=== PATIENT | female | born 1995 | race Caucasian/White ===

== ENCOUNTER 2017-05-23 23:07 | Emergency (ER) | payer SELFPAY ==
[~2017-05-23] VITALS: Ht 154.9 cm; Wt 55.6 kg
[~2017-05-23 23:07] MED LIST: AMPH20TA2 PO; CEFD300C3 PO; CHOL10003 PO; DEXT10TA9 PO; FLUO20CA42 PO; LRT10T PO; NAPR-243 PO; ORTHOTRYCYCLINE
--- OUTSIDE RECORDS SUMMARY | 2017-05-23 23:12 | XMS REPORT | Continuity of Care Document ---
Demographics Preferred Language Unknown Marital Status Unknown Gnosticist Affiliation Unknown Race Unknown Ethnic Group Unknown Author Author [facility] Address Unknown Phone Unavailable Allergies Medications Problems Date Dx Coded Attending Type Code Diagnosis Diagnosed By 12/06/2009 314.00 CD ADHD INATTENTIVE 12/20/2009 309.0 AD ADJ D/O W DEPRESSED 01/26/2010 311 MO DEPRESS NOS Procedures Results Encounters ACCT No. Visit Date/Time Discharge Status Pt. Type Provider Facility Loc./Unit Complaint [id number] 03/17/2010 16:13:00 03/17/2010 23: 59:59 CLS Outpatient [id number] 01/14/2013 08:46:49 RECURRING
[2017-05-23] MEDS ORDERED: LACTATED RINGERS 1,000 ML IV ONE (23:23)
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
[2017-05-23 23:29] LABS: BASOPHILS % (AUTO) 0 % (0-10); EOSINOPHILS # (AUTO) 0.2 10^3/uL (0.0-0.3); EOSINOPHILS % (AUTO) 2 % (0-10); LYMPHOCYTES # (AUTO) 3.7 X 10^3 (1.0-4.0); LYMPHOCYTES % (AUTO) 43 % (12-44); MEAN CORPUSCULAR HEMOGLOBIN 30 PG (25-34); MEAN CORPUSCULAR HGB CONC 34 G/DL (32-36); MEAN CORPUSCULAR VOLUME 90 FL (80-99); MEAN PLATELET VOLUME 9.4 FL (7.4-10.4); MONOCYTES # (AUTO) 0.7 X 10^3 (0.0-1.0); MONOCYTES % (AUTO) 8 % (0-12); NEUTROPHILS % (AUTO) 47 % (42-75); PLATELET COUNT 359 10^3/uL (130-400); RED BLOOD COUNT 3.88 10^6/uL (4.35-5.85); RED CELL DISTRIBUTION WIDTH 12.3 % (10.0-14.5); WHITE BLOOD COUNT 8.6 10^3/uL (4.3-11.0)
[2017-05-23 23:51] LABS: ALANINE AMINOTRANSFERASE 13 U/L (0-55); ALBUMIN 3.9 GM/DL (3.2-4.5); ALCOHOL 255 MG/DL (<10); ANION GAP 14 MMOL/L (5-14); ASPARTATE AMINO TRANSFERASE 16 U/L (5-34); BILIRUBIN,TOTAL 0.3 MG/DL (0.1-1.0); BLOOD UREA NITROGEN 7 MG/DL (7-18); BUN/CREATININE RATIO 11; CARBON DIOXIDE 16 MMOL/L (21-32); CHLORIDE 109 MMOL/L (98-107); CREATININE SERUM 0.62 MG/DL (0.60-1.30); GFR ESTIMATED > 60; GLUCOSE 128 MG/DL (70-105); POTASSIUM 2.9 MMOL/L (3.6-5.0); SODIUM 139 MMOL/L (135-145); TOTAL PROTEIN 6.5 GM/DL (6.4-8.2)
[2017-05-24 00:22] LABS: BILIRUBIN,URINE NEGATIVE (NEGATIVE); KETONES,URINE NEGATIVE (NEGATIVE); LEUKOCYTE ESTERASE ,URINE NEGATIVE (NEGATIVE); NITRITE,URINE NEGATIVE (NEGATIVE); PH,URINE 6 (5-9); PROTEIN,URINE NEGATIVE (NEGATIVE); UROBILINOGEN,URINE NORMAL (NORMAL)
[2017-05-24 00:31] LABS: SQUAMOUS EPITHELIAL CELL,UR 0-2 /HPF
[2017-05-24 01:55] VITALS: BP 109/73
== END 2017-05-24 01:55 | disposition home or self-care (01) ==
LOC: EDUNIT# 23:07 → ER 23:09
DX: F10.129 Alcohol abuse with intoxication, unspecified (principal); F90.9 Attention-deficit hyperactivity disorder, unspecified type; R89.1 Abnormal level of hormones in specimens from other organs, systems and tissues
CPT/HCPCS: 36415; 80053; 80306; 80320; 81000; 84703; 85025; 96360

== ENCOUNTER → 2018-11-18 | Outpatient (CLI) | payer OTHER, MEDICAID ==
--- NOTE | 2018-11-18 13:31 | Diagnostic Imaging Report ---
INDICATION: survey. TECHNIQUE: Multiple Real-time grayscale images were obtained over the gravid uterus. COMPARISON: None. FINDINGS: There is a single live fetus in a breech presentation. The heart rate was recorded at 147 BPM. The placenta is posterior. The amniotic fluid volume is normal. The survey demonstrates the kidneys, bladder, and stomach to be unremarkable. The brain is unremarkable. There is a four-chamber heart. There is a three-vessel cord with normal insertion. The spine is unremarkable. The maternal adnexa was not evaluated. Biometrical measurements are as follows: Biparietal 5.04 cm, age 21 weeks 2 days. Head circumference 18.85 cm, age 21 weeks 2 days. Abdominal circumference 17.59 cm, age 22 weeks 4 days. Femur length 3.66 cm, age 21 weeks 5 days. Sonographic estimate age: 21 weeks 5 days. Sonographic estimated date of delivery: 03/26/2019. Estimated Weight: 466 gm (+/- 68 gm). LMP percentile: 86%. heart rate: 147 beats per minute. number: 1 of 1. IMPRESSION: Single live IUP of approximately 21 weeks 5 days gestational age. The estimated date of confinement sonographically is 03/26/2019. Dictated by: Dictated on workstation # [id number]
== END ==
LOC: RAD 12:00
PROVIDERS: ATTEND Obstetrics & Gynecology
DX: Z36.89 Encounter for other specified antenatal screening (principal); Z3A.21 21 weeks gestation of pregnancy
CPT/HCPCS: 76805

== ENCOUNTER 2019-03-30 13:03 | Outpatient (CLI) | payer OTHER, MEDICAID ==
[~2019-03-30] VITALS: Ht 157.5 cm; Wt 93.6 kg
--- NOTE | 2019-03-30 13:08 | NUR ---
ROZ MONTE presented to unit from ED, with c/o CONTRACTIONS. ROZ MONTE weighed, gowned, voided, and to bed. EFHM and TOCO applied, VS taken. ROZ MONTE oriented to bed controls, call light, TV, heat, and A/C controls.
[2019-03-30 13:19] VITALS: BP 119/75
[2019-03-30] MEDS ORDERED: SERT25TA PO (13:23)
[2019-03-30] MEDS ORDERED: PNV11TAB5 PO (13:23)
[2019-03-30 13:31] LABS: BILIRUBIN,URINE NEGATIVE (NEGATIVE); CLARITY,URINE VERY CLOUDY; COLOR,URINE YELLOW; GLUCOSE, URINE (UA) NEGATIVE (NEGATIVE); KETONES,URINE NEGATIVE (NEGATIVE); LEUKOCYTE ESTERASE ,URINE 2+ (NEGATIVE); NITRITE,URINE NEGATIVE (NEGATIVE); PH,URINE 6 (5-9); PROTEIN,URINE 1+ (NEGATIVE); UROBILINOGEN,URINE NORMAL (NORMAL)
[2019-03-30 13:39] LABS: BACTERIA,URINE LARGE /HPF; SQUAMOUS EPITHELIAL CELL,UR 25-50 /HPF
--- NOTE | 2019-03-30 14:19 | NUR ---
DR. FANG NOTIFIED OF PT'S ARRIVAL, C/O, GESTATION, REVIEW OF STRIP, UA RESULTS. ORDERS RECEIVED TO [facility].
--- NOTE | 2019-03-30 14:33 | NUR ---
DISCHARGE PAPERS PROVIDED AND REVIEWED WITH PT, PT VERBALIZES UNDERSTANDING AND DENIES ANY QUESTIONS AT THIS TIME. PAPER SIGNED.
--- NOTE | 2019-03-30 14:35 | NUR ---
PT DISCHARGED FROM [facility] TO [facility] AMBULATORY IN STABLE CONDITION.
[2019-04-01] MEDS ORDERED: IBUP-844 PO (21:16)
[2019-04-01] MEDS ORDERED: DOCU100C37 PO (21:16)
[2019-04-01] MEDS ORDERED: ACHD5005 PO (21:16)
[2019-04-01] MEDS ORDERED: FERR325T18 PO (21:16)
== END 2019-03-30 14:35 | disposition home or self-care (01) ==
LOC: LDRP 13:03 → WSo 13:03
PROVIDERS: ATTEND Obstetrics & Gynecology
DX: O62.9 Abnormality of forces of labor, unspecified (principal); Z3A.40 40 weeks gestation of pregnancy
CPT/HCPCS: 81000; 87088; 99213

== ENCOUNTER 2019-03-31 17:00 | Inpatient (IN) | payer OTHER, MEDICAID ==
[~2019-03-31] VITALS: Ht 157.5 cm; Wt 93.6 kg
[~2019-03-31 17:00] MED LIST changes: +PNV11TAB5 PO; +SERT25TA PO
[2019-03-31] MEDS ORDERED: D5 LR IV SOLUTION 1,000 ML IV ONE (19:26)
[2019-03-31 19:30] VITALS: BP 119/75
[2019-03-31] MEDS ORDERED: NS IV 500 ML 500 ML ONE (19:59)
[2019-03-31] MEDS ORDERED: MISOPROSTOL 100 MCG (CYTOTEC) TAB PO NR (20:00)
[2019-03-31] MEDS ORDERED: NS 1000 ML IV BAG IV ONE (20:00)
[2019-03-31 20:06] LABS: BASOPHILS % (AUTO) 0 % (0-10); EOSINOPHILS # (AUTO) 0.1 10^3/uL (0.0-0.3); EOSINOPHILS % (AUTO) 1 % (0-10); HEMATOCRIT 37 % (35-52); HEMOGLOBIN 12.6 G/DL (11.5-16.0); LYMPHOCYTES # (AUTO) 1.6 X 10^3 (1.0-4.0); LYMPHOCYTES % (AUTO) 15 % (12-44); MEAN CORPUSCULAR HEMOGLOBIN 30 PG (25-34); MEAN CORPUSCULAR HGB CONC 34 G/DL (32-36); MEAN CORPUSCULAR VOLUME 88 FL (80-99); MEAN PLATELET VOLUME 10.4 FL (7.4-10.4); MONOCYTES # (AUTO) 0.7 X 10^3 (0.0-1.0); MONOCYTES % (AUTO) 6 % (0-12); NEUTROPHILS # (AUTO) 8.7 X 10^3 (1.8-7.8); NEUTROPHILS % (AUTO) 78 % (42-75); PLATELET COUNT 327 10^3/uL (130-400); RED CELL DISTRIBUTION WIDTH 14.1 % (10.0-14.5); WHITE BLOOD COUNT 11.1 10^3/uL (4.3-11.0)
[2019-03-31] MEDS: D5 LR IV SOLUTION 1,000 ML IV SCH (20:07)
[2019-03-31 20:30] VITALS: BP 102/66
[2019-03-31] MEDS: MISOPROSTOL 100 MCG (CYTOTEC) TAB PO SCH (20:42)
[2019-03-31 21:30] VITALS: BP 108/62
[2019-03-31 22:30] VITALS: BP 119/68
[2019-03-31 23:30] VITALS: BP 115/76
[2019-04-01] VITALS (29 sets, daily range): BP systolic 102–141; BP diastolic 55–95
[2019-04-01] MEDS: MISOPROSTOL 100 MCG (CYTOTEC) TAB PO SCH (01:27)
[2019-04-01] MEDS ORDERED: HYDROmorphone 2 MG/ML VIAL (DILAUDID) IV ONE ×2 (02:15→05:45)
[2019-04-01] MEDS: D5 LR IV SOLUTION 1,000 ML IV SCH ×2 (03:37→10:55)
[2019-04-01] MEDS ORDERED: SUFENTA 0.6MCG/ML BUPIVA 0.125 100 ML ONE (07:19)
--- NOTE | 2019-04-01 08:05 | History & Physical-OB ---
OB - Chief Complaint & HPI Date/Time Date of Admission: Date of Admission: March 31, 2019 at 17:00 Date seen by a Provider: April 01, 2019 Time Seen by a Provider: 08:00 Chief Complaint/History OB-Reason for Admission/Chief: Induction of Labor Hx : 1 Hx Para: 0 Expected Date of Delivery: March 30, 2019 Gestational Age in Weeks: 40 Gestational Age in Days: 1 Admission Nurse Assessment Rev: Yes History of Labs see labs Allergies and Home Medications Allergies Coded Allergies: No Known Drug Allergies (Unverified , 07/04/10) Home Medications Loratadine 10 Mg Tab, 10 MG PO DAILY, (Reported) Iee538/FA/Omega3/Dha/Fish Oil 1 Each Tab.chew, 2 EACH PO DAILY, (Reported) Sertraline HCl 25 Mg Tablet, 25 MG PO DAILY, (Reported) Patient Home Medication List Home Medication List Reviewed: Yes OB - History Hx of Present Care: Yes Ultrasounds: Normal mid trimester US Obstetrical Complications: None Medical Complications: None Delivery History Hx Blood Disorders: No Adverse Rxn to Tranfusion: No Patient Past Medical History n/a Social History/Family History Alcohol Use: Denies Use Recreational Drug Use: No Immunizations Tetanus Booster (TDap): Unknown OB - Admission Exam Physical Exam Vitals: Vital Signs 04/01/19 04/01/19 03:00 06:20 Temp 97.9 Pulse 80 Resp 18 B/P (MAP) 121/70 (87) HEENT: NCAT Heart: Rhythm Normal Lungs: Clear Abdomen: Gravid Extremities: Normal Reflexes: Normal Cervical Dilatation: 2cm Effacement: 75% Station: -1 Membranes: Intact Heart Rate: 130's Accelerations: Accelerations Present Decelerations: No Decelerations Short Term Variability: Present Snf Variability: Average (6-25) Contractions on Admission: None Intensity: Mild Labs Laboratory Tests Test 03/31/19 19:40 Range/Units White Blood Count 11.1 H 4.3-11.0 10^3/uL Red Blood Count 4.22 L 4.35-5.85 10^6/uL Hemoglobin 12.6 11.5-16.0 G/DL Hematocrit 37 35-52 % Mean Corpuscular Volume 88 80-99 FL Mean Corpuscular Hemoglobin 30 25-34 PG Mean Corpuscular Hemoglobin Concent 34 32-36 G/DL Red Cell Distribution Width 14.1 10.0-14.5 % Platelet Count 327 130-400 10^3/uL Mean Platelet Volume 10.4 7.4-10.4 FL Neutrophils (%) (Auto) 78 H 42-75 % Lymphocytes (%) (Auto) 15 12-44 % Monocytes (%) (Auto) 6 0-12 % Eosinophils (%) (Auto) 1 0-10 % Basophils (%) (Auto) 0 0-10 % Neutrophils # (Auto) 8.7 H 1.8-7.8 X 10^3 Lymphocytes # (Auto) 1.6 1.0-4.0 X 10^3 Monocytes # (Auto) 0.7 0.0-1.0 X 10^3 Eosinophils # (Auto) 0.1 0.0-0.3 10^3/uL Basophils # (Auto) 0.0 0.0-0.1 10^3/uL OB - Assessment/Plan/Diagnosis Assessment Assessment: induction of labor Admission Dx 24 yo @ 40 weeks Postdates Induction of labor GBS neg Admission Status: Inpatient Order (span 2 midnights) Reason for Inpatient Admission: Induction of labor at term Plan Plan: Induction Induction Method: per Misoprostol Protocol CABRERA FNAG DO April 01, 2019 08:05
[2019-04-01] MEDS ORDERED: LIDOCAINE/EPI 2% 1:200,00 (XYLOCAINE) 10 ML VIAL ONE (08:11)
[2019-04-01] MEDS ORDERED: fentaNYL INJECTION 100 MCG/2 ML AMP ONE (08:24)
[2019-04-01] MEDS ORDERED: OXYTOCIN/NORMAL SALINE 500 ML IV ONE (08:29)
[2019-04-01] MEDS ORDERED: LIDOCAINE 1% INJ 20 ML 20 ML VIAL ONE (08:29)
[2019-04-01] MEDS ORDERED: LACTATED RINGERS 1,000 ML IV SCH (10:45)
[2019-04-01] MEDS ORDERED: ONDANSETRON 4 MG/2 ML (SDV) Z0FRAN ONE (11:43)
[2019-04-01] MEDS ORDERED: ONDANSETRON 4 MG/2 ML (SDV) Z0FRAN IVP PRN (12:00)
[2019-04-01] MEDS ORDERED: OXYTOCIN/NORMAL SALINE 500 ML IV SCH (12:54)
[2019-04-01] MEDS ORDERED: BENZOCAINE/MENTHOL (DERMOPLAST) 56 ML CAN TP PRN (13:00)
[2019-04-01] MEDS ORDERED: HYDROcodone/APAP 5 MG/325 MG (LORTAB) TAB PO PRN (13:00)
[2019-04-01] MEDS ORDERED: MEASLES,MUMPS,RUBELLA 1 EA INJ SQ ONE (13:00)
[2019-04-01] MEDS ORDERED: TETANUS,DIPTH,PERTUSS P/F (BOOSTRIX) 0.5 ML VIAL IM ONE (13:00)
[2019-04-01] MEDS ORDERED: WITCH HAZEL(TUCKS) 40 EA JAR TOP PRN (13:00)
--- NOTE | 2019-04-01 13:02 | OB Labor & Delivery Record ---
L&D History Date of Service Date of Service: April 01, 2019 History Expected Date of Delivery: March 30, 2019 Gestational Age in Weeks: 40 Hx : 1 Hx Para: 0 Complications Events: Routine care Operative Indications (Cesarea: N/A-Vaginal Delivery Intrapartal Events: None L&D Stage1 Stage One Onset of Labor - Date: April 01, 2019 Monitors and Tracing Monitor Mode: External Heart Rate: 150 Station: -1 Vital Signs VS - Last 72 Hours, by Label 03/31/19 03/31/19 03/31/19 03/31/19 19:30 20:30 21:30 22:30 Temp 99.2 Pulse 111 96 98 86 Resp 18 18 18 18 B/P (MAP) 119/75 (90) 102/66 (78) 108/62 (77) 119/68 (85) 03/31/19 04/01/19 04/01/19 04/01/19 23:30 00:30 01:30 03:00 Temp 99.3 97.9 Pulse 90 80 86 112 Resp 18 18 18 18 B/P (MAP) 115/76 (89) 103/58 (73) 124/69 (87) 102/55 (71) 04/01/19 04/01/19 04/01/19 04/01/19 04:20 05:20 06:20 07:20 Pulse 93 83 80 77 Resp 18 18 18 16 B/P (MAP) 114/61 (78) 114/56 (75) 121/70 (87) 116/63 (80) Pulse Ox 96 O2 Delivery Room Air 04/01/19 04/01/19 04/01/19 04/01/19 07:30 08:13 08:15 08:18 Pulse 92 113 108 96 Resp 16 16 16 16 B/P (MAP) 141/81 (101) 141/80 (100) 141/67 (91) Pulse Ox 99 97 100 O2 Delivery Room Air Room Air Room Air 04/01/19 04/01/19 04/01/19 04/01/19 08:20 08:21 08:22 08:25 Pulse 94 96 94 Resp 16 16 B/P (MAP) 131/58 (82) 138/95 (109) 136/63 (87) 113/58 (76) Pulse Ox 100 100 04/01/19 04/01/19 04/01/19 04/01/19 08:30 08:45 09:00 09:15 Temp 99.3 Pulse 100 102 89 101 Resp 16 16 16 16 B/P (MAP) 116/71 (86) 127/83 (98) 111/69 (83) 114/75 (88) Pulse Ox 100 100 100 97 O2 Delivery Simple Mask Simple Mask Simple Mask Simple Mask O2 Flow Rate 10.00 10.00 10.00 10.00 04/01/19 04/01/19 09:30 09:45 Pulse 88 118 Resp 16 16 B/P (MAP) 119/69 (86) 116/63 (80) Pulse Ox 100 97 O2 Delivery Simple Mask Simple Mask O2 Flow Rate 10.00 10.00 Rupture of Membranes Amniotic Membrane Rupture Time: 0757 Induction/Anesthesia Epidural Cath Placement - Time: 08 Progress/Notes misoprostol PO given as induction method which required no further intervention, patient progressed to complete and +2 station after receiving epidural L&D Stage2 Monitors and Tracing Monitor Mode: External Heart Rate: 150 Monitor Accelerations: None Monitor Decelerations: Variable Plastic Straightening Roll Operator Variability: Average (6-10) Short Term Variability: Present Position: Right Occiput Anterior Presentation: Vertex Signs of Distress by FHT Signs of Distress Due to prolonged decels into the 60s decision was made for low vaccuum extraction. kiwi cup placed down midsagital suture line between ant/post fontanelle. 550 mmhg applied by the handle and with gentle extension the head was delivered of midline episiotomy Cord Descript/Complications Cord Vessel Description: 3 Vessels Complications nuchal cord reduced x 1 Delivery Type Delivery Method: Low Vacuum Extraction Anterior Shoulder: Left Episiotomy/Perineal Laceration Laceraction(s)/Extensions: Yes Episiotomy Description: Midline Degree (describe repair) midline episiotomy repaired using 3-0 and 2-0 vicryl suture Condition of Delivery 1 minute Comment: 8 5 minute Comment: 9 Notes live male weight pending Condition of Infant Condition of : Living Exam: No Observed Abnormalities Resuscitation Resuscitation: N/A - Spontaneous Resp L&D Stage3 Stage Three Stage III Date: April 01, 2019 Pictocin Pitocin Administration Comment: 30 mu wide open at delivery of placenta Placenta Delivery Placenta Delivery: Spontaneous Delivery Summary Summary Estimated blood loss (mL): 350 350 Attending at delivery: Cabrera Fang DO Condition of Delivery Examined: Cervix Examined, Uterus Explored Post Hemorrhage: No Condition of Mother stable Condition of Infant (s) stable CABRERA FANG DO April 01, 2019 13:02
[2019-04-01] MEDS ORDERED: CATHETER FLUSH 10 ML SYR IV SCH (14:00)
[2019-04-01] MEDS ORDERED: IBUPROFEN 600 MG (MOTRIN) TAB PO ONE (14:45)
--- NOTE | 2019-04-01 15:15 | NUR ---
Transferred to via w/c.
--- NOTE | 2019-04-01 19:04 | NUR ---
1227 Vaginal delivery assisted with Kiwi vacuum by Dr Mendez for bradycardia over midline episiotomy without extension. Mom and doing well. 1302 Epidural dc'd with black tip intact.
[2019-04-01] MEDS: IBUPROFEN 600 MG (MOTRIN) TAB PO SCH (20:58)
[2019-04-01] MEDS: DOCUSATE SODIUM 100 MG (COLACE) CAP PO SCH (20:58)
--- NOTE | 2019-04-01 21:14 | Discharge Inst-Women's Service ---
Discharge Inst-Women's Serv Depart Medication/Instructions New, Converted or Re-Newed RX: RX on Chart Final Diagnosis PPD 2 VAVD Consults/Follow Up Additional Follow Up: Yes Orders/Referrals Dr. fang in 6 weeks Activity Activity: Activity as Tolerated Driving Instructions: No Driving for 1 Week NO SMOKING: NO SMOKING Nothing Inside Vagina: No Douching, No [place], No Tampons Diet Discharge Diet: No Restrictions Symptoms to Report to : Bleeding Excessive, Pain Increased, Fever Over 101 Degrees F, Vaginal Bleeding Increase, Questions/Concerns For Any Problems or Questions: Contact Your Physician CABRERA FANG DO April 01, 2019 21:14
[2019-04-01] MEDS ORDERED: FERR325T18 PO (21:16)
[2019-04-01] MEDS ORDERED: DOCU100C37 PO (21:16)
[2019-04-01] MEDS ORDERED: IBUP-844 PO (21:16)
[2019-04-01] MEDS ORDERED: ACHD5005 PO (21:16)
[2019-04-02] VITALS: BP 122/71
[2019-04-02] MEDS: IBUPROFEN 600 MG (MOTRIN) TAB PO SCH ×3 (03:43→17:50)
[2019-04-02 05:46] LABS: BASOPHILS % (AUTO) 0 % (0-10); EOSINOPHILS # (AUTO) 0.1 10^3/uL (0.0-0.3); EOSINOPHILS % (AUTO) 1 % (0-10); HEMATOCRIT 28 % (35-52); HEMOGLOBIN 9.3 G/DL (11.5-16.0); LYMPHOCYTES # (AUTO) 1.9 X 10^3 (1.0-4.0); LYMPHOCYTES % (AUTO) 14 % (12-44); MEAN CORPUSCULAR HEMOGLOBIN 30 PG (25-34); MEAN CORPUSCULAR HGB CONC 34 G/DL (32-36); MEAN CORPUSCULAR VOLUME 90 FL (80-99); MONOCYTES # (AUTO) 1.2 X 10^3 (0.0-1.0); MONOCYTES % (AUTO) 9 % (0-12); NEUTROPHILS # (AUTO) 10.5 X 10^3 (1.8-7.8); NEUTROPHILS % (AUTO) 77 % (42-75); PLATELET COUNT 265 10^3/uL (130-400); RED CELL DISTRIBUTION WIDTH 13.9 % (10.0-14.5); WHITE BLOOD COUNT 13.8 10^3/uL (4.3-11.0)
[2019-04-02] MEDS: PRENATAL VITAMIN 1 EA TAB PO SCH ×2 (06:41→11:09)
--- NOTE | 2019-04-02 07:29 | Postpartum Progress Note ---
Note Note Day # 1 Subjective: Patient is without complaints. Ambulating, voiding. Tolerating a regular diet without nausea or vomiting. Normal lochia. Pain is well controlled with oral pain medications. Objective: Physical Exam: General - Alert and oriented, no apparent distress Abdomen - Soft, appropriately tender to palpation, non-distended, fundus firm at umbilicus Extremities - no edema, negative Ekaterina's bilaterally Assessment: PPD 1 VAVD Acute blood loss anemia Plan: Routine care. Encourage breast feeding. Encourage ambulation. Ferrous sulfate supplementation. Plan for discharge tomorrow Vitals - Labs Vital Signs - I&O Vital Signs Date Time Temp Pulse Resp B/P (MAP) Pulse Ox O2 Delivery O2 Flow Rate FiO2 04/02/19 00:00 98.0 91 18 122/71 (88) 99 Room Air 04/01/19 15:30 97.8 89 18 104/67 (79) 98 Room Air 04/01/19 12:15 99 16 125/68 (87) 97 Simple Mask 10.00 04/01/19 12:00 99.1 93 16 125/68 (87) 100 Simple Mask 10.00 04/01/19 11:45 102 137/77 (97) 100 Simple Mask 10.00 04/01/19 11:30 110 16 100 Simple Mask 10.00 04/01/19 11:15 95 118/73 (88) 100 Simple Mask 10.00 04/01/19 11:00 104 16 100 Simple Mask 10.00 04/01/19 10:45 115 16 130/78 (95) 100 Simple Mask 10.00 04/01/19 10:30 96 16 129/80 (96) 100 Simple Mask 10.00 04/01/19 10:15 93 16 117/71 (86) 100 Simple Mask 10.00 04/01/19 10:00 101 16 119/71 (87) 96 Simple Mask 10.00 04/01/19 09:45 118 16 116/63 (80) 97 Simple Mask 10.00 04/01/19 09:30 88 16 119/69 (86) 100 Simple Mask 10.00 04/01/19 09:15 101 16 114/75 (88) 97 Simple Mask 10.00 04/01/19 09:00 99.3 89 16 111/69 (83) 100 Simple Mask 10.00 04/01/19 08:45 102 16 127/83 (98) 100 Simple Mask 10.00 04/01/19 08:30 100 16 116/71 (86) 100 Simple Mask 10.00 04/01/19 08:25 94 16 113/58 (76) 100 04/01/19 08:22 136/63 (87) 100 04/01/19 08:21 96 138/95 (109) 04/01/19 08:20 94 16 131/58 (82) 04/01/19 08:18 96 16 141/67 (91) 100 04/01/19 08:15 108 16 141/80 (100) 97 Room Air 04/01/19 08:13 113 16 141/81 (101) Room Air 04/01/19 07:30 92 16 99 Room Air I & O 04/02/19 07:00 Intake Total 2450 ml Output Total 500 ml Balance 1950 ml Labs Laboratory Tests 04/02/19 05:25: White Blood Count 13.8H, Red Blood Count 3.05L, Hemoglobin 9.3#L, Hematocrit 28L , Mean Corpuscular Volume 90, Mean Corpuscular Hemoglobin 30, Mean Corpuscular Hemoglobin Concent 34, Red Cell Distribution Width 13.9, Platelet Count 265, Mean Platelet Volume 10.0, Neutrophils (%) (Auto) 77H, Lymphocytes (%) (Auto) 14 , Monocytes (%) (Auto) 9, Eosinophils (%) (Auto) 1, Basophils (%) (Auto) 0, Neutrophils # (Auto) 10.5H, Lymphocytes # (Auto) 1.9, Monocytes # (Auto) 1.2H, Eosinophils # (Auto) 0.1, Basophils # (Auto) 0.0 CABRERA FANG DO April 02, 2019 07:29
[2019-04-02] MEDS ORDERED: FERROUS SULF 325 MG (IRON) TAB PO SCH (08:00)
--- NOTE | 2019-04-02 08:20 | NUR ---
DR FANG HERE TO SEE PT. NO NEW ORDERS REC'D
[2019-04-02] MEDS ORDERED: DOCUSATE CALCIUM 240 MG (SURFAK) CAP PO SCH (09:00)
--- NOTE | 2019-04-02 10:20 | NUR ---
TO ROOM FOR ASSESSMENT, VS, AND MORNING MEDS. PT SLEEPING SOUNDLY, S.O. REQUESTS NOT TO WAKE AT THIS TIME. ASKED S.O. TO CALL WHEN PT WAKES.
[2019-04-02 11:06] VITALS: BP 108/64
[2019-04-02] MEDS: DOCUSATE SODIUM 100 MG (COLACE) CAP PO SCH ×2 (11:08→21:21)
--- NOTE | 2019-04-02 12:28 | Anesthesia-Regional Post-Op ---
Regional Patient Condition Mental Status: Alert, Oriented x3 Circulation: Same as Pre-Op Headache: Absent Sensation: Full Recovery Motor Block: Absent Post Op Complications Complications None Follow Up Care/Instructions Patient Instructions None needed. Anesthesia/Patient Condition Patient is doing well, no complaints, stable vital signs, no apparent adverse anesthesia problems. No complications reported per nursing. JASPER STEVENSON CRNA April 02, 2019 12:28
[2019-04-02 16:00] VITALS: BP 94/51
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
--- NOTE | 2019-04-02 20:00 | NUR ---
Pt to private room to BF .
[2019-04-02 21:15] VITALS: BP 96/63
--- NOTE | 2019-04-02 21:15 | NUR ---
Pt back to PP room and sitting up at this time.
[2019-04-03] MEDS: IBUPROFEN 600 MG (MOTRIN) TAB PO SCH ×3 (00:06→05:32)
--- NOTE | 2019-04-03 00:06 | NUR ---
Pt awake, routine motrin given PO, denies needs.
[2019-04-03 03:52] VITALS: BP 84/53
--- NOTE | 2019-04-03 03:52 | NUR ---
Pt aroused from sleep, VS taken.
--- NOTE | 2019-04-03 05:30 | NUR ---
Pt aroused from sleeping, routine motrin given, denies needs.
[2019-04-03 08:15] VITALS: BP 96/63
--- NOTE | 2019-04-03 09:52 | Postpartum Progress Note ---
Note Note Day # 2 Subjective: Patient is without complaints. Ambulating, voiding. Tolerating a regular diet without nausea or vomiting. Normal lochia. Pain is well controlled with oral pain medications. Objective: Physical Exam: General - Alert and oriented, no apparent distress Abdomen - Soft, appropriately tender to palpation, non-distended, fundus firm at umbilicus Extremities - no edema, negative Ekaterina's bilaterally Assessment: PPD 2 VAVD Plan: Routine care. Encourage breast feeding. Encourage ambulation. Ferrous sulfate supplementation. Plan for discharge today Vitals - Labs Vital Signs - I&O Vital Signs Date Time Temp Pulse Resp B/P (MAP) Pulse Ox O2 Delivery O2 Flow Rate FiO2 04/03/19 08:15 98.5 91 20 96/63 (74) 97 Room Air 04/03/19 03:52 97.6 99 18 84/53 (63) Room Air 04/02/19 21:15 98.2 86 18 96/63 (74) 97 Room Air 04/02/19 16:00 98.3 98 18 94/51 (65) 97 Room Air 04/02/19 11:06 98.3 101 18 108/64 (79) 99 Room Air CABRERA FANG DO April 03, 2019 09:52
--- NOTE | 2019-04-03 12:58 | NUR ---
ROZ MONTE demonstrates understanding of discharge instructions and accurately returns instructions upon questioning. Copy of Post-Discharge Instructions and Medication Discharge Instructions given to patient. ROZ MONTE is able to manage continuing needs after discharge. Patients belongings returned to patient. Skin dry and intact; no breakdown noted. Patient discharged from [facility]- on 04-03-19 at 1258. ROZ MONTE left floor via ambulation, accompanied by staff and s/o.
== END 2019-04-03 12:58 | disposition home or self-care (01) | DRG 806 ==
LOC: LDRP 17:00
PROVIDERS: ADMIT Obstetrics & Gynecology; ATTEND Obstetrics & Gynecology
PROC: 3E0DXGC Introduction of Other Therapeutic Substance into Mouth and Pharynx, External Approach (ICD-10-PCS; 2019-03-31)
PROC: 10D07Z6 Extraction of Products of Conception, Vacuum, Via Natural or Artificial Opening (ICD-10-PCS; principal; 2019-04-01)
PROC: 0W8NXZZ Division of Female Perineum, External Approach (ICD-10-PCS; 2019-04-01)
DX: O48.0 Post-term pregnancy (principal); O76 Abnormality in fetal heart rate and rhythm complicating labor and delivery; O90.81 Anemia of the puerperium; D62 Acute posthemorrhagic anemia; O69.81X0 Labor and delivery complicated by cord around neck, without compression, not applicable or unspecified; Z3A.40 40 weeks gestation of pregnancy; Z37.0 Single live birth
CPT/HCPCS: 36415; 85025; 86850; 86900; 86901

== ENCOUNTER 2019-08-24 15:22 | Day surgery (SDC) | payer MEDICAID, OTHER ==
[~2019-08-24] VITALS: Ht 160 cm; Wt 76.0 kg
[~2019-08-24 15:22] MED LIST changes: +ACHD5005 PO; +DOCU100C37 PO; +FERR325T18 PO; +IBUP-844 PO
[2019-08-24 15:48] LABS: BILIRUBIN,URINE NEGATIVE (NEGATIVE); CLARITY,URINE SLIGHTLY CLOUDY; COLOR,URINE YELLOW; GLUCOSE, URINE (UA) NEGATIVE (NEGATIVE); KETONES,URINE 4+ (NEGATIVE); LEUKOCYTE ESTERASE ,URINE 1+ (NEGATIVE); NITRITE,URINE NEGATIVE (NEGATIVE); PH,URINE 5 (5-9); PROTEIN,URINE 1+ (NEGATIVE); UROBILINOGEN,URINE NORMAL (NORMAL)
[2019-08-24 15:51] LABS: BASOPHILS % (AUTO) 0 % (0-10); EOSINOPHILS % (AUTO) 0 % (0-10); HEMATOCRIT 38 % (35-52); HEMOGLOBIN 12.9 G/DL (11.5-16.0); LYMPHOCYTES # (AUTO) 1.1 X 10^3 (1.0-4.0); LYMPHOCYTES % (AUTO) 7 % (12-44); MEAN CORPUSCULAR HEMOGLOBIN 29 PG (25-34); MEAN CORPUSCULAR HGB CONC 34 G/DL (32-36); MEAN CORPUSCULAR VOLUME 85 FL (80-99); MEAN PLATELET VOLUME 9.4 FL (7.4-10.4); MONOCYTES # (AUTO) 0.8 X 10^3 (0.0-1.0); MONOCYTES % (AUTO) 5 % (0-12); NEUTROPHILS # (AUTO) 14.1 X 10^3 (1.8-7.8); NEUTROPHILS % (AUTO) 88 % (42-75); PLATELET COUNT 368 10^3/uL (130-400); RED CELL DISTRIBUTION WIDTH 13.1 % (10.0-14.5)
[2019-08-24 15:56] LABS: BACTERIA,URINE MODERATE /HPF; RBC,URINE RARE /HPF; WBC,URINE RARE /HPF
[2019-08-24] MEDS ORDERED: KETOROLAC 30 MG/ML VIAL IVP STA (15:57)
[2019-08-24] MEDS ORDERED: NS IV 1000 ML 1,000 ML IV ONE (15:57)
[2019-08-24 16:10] LABS: ALANINE AMINOTRANSFERASE 19 U/L (0-55); ALBUMIN 4.7 GM/DL (3.2-4.5); ALKALINE PHOSPHATASE 128 U/L (40-136); BILIRUBIN,TOTAL 0.5 MG/DL (0.1-1.0); BUN/CREATININE RATIO 13; CALCIUM 9.7 MG/DL (8.5-10.1); CARBON DIOXIDE 21 MMOL/L (21-32); CHLORIDE 103 MMOL/L (98-107); CREATININE SERUM 0.68 MG/DL (0.60-1.30); GFR ESTIMATED > 60; GLUCOSE 96 MG/DL (70-105); POTASSIUM 3.8 MMOL/L (3.6-5.0); SODIUM 137 MMOL/L (135-145); TOTAL PROTEIN 7.6 GM/DL (6.4-8.2)
--- NOTE | 2019-08-24 16:15 | ED GU-Female ---
General Chief Complaint: - Urinary Stated Complaint: DX W/ UTI/ DISCOMFORT Nursing Triage Note: PT PRESENTS TO ED VIA EMS FOR COMPLAINTS BILATERAL FLANK PAIN AND RECENTLY DIAGNOSED WITH A UTI TODAY AT [facility]. Nursing Sepsis Screen: No Definite Risk Source: patient Exam Limitations: no limitations History of Present Illness Date Seen by Provider: Aug 24, 2019 Time Seen by Provider: 15:45 Initial Comments 24-year-old female patient presents via [facility] with reports of bilateral flank pain and recent diagnosis of a urinary tract infection. Patient was seen at [facility] this AM and prescribed amoxicillin 500 mg twice a day. Patient reports taking 1 dose of amoxicillin at 1300. Patient reports symptoms are slightly worse. NPO since noon (1/2 piece of toast and a sip of H2O). Patient is . Timing/Duration: getting worse, other (onset last night) Severity/Quality: aching, sharp Location: generalized flank Radiation: RLQ, back (rt back), suprapubic Activities at Onset: none Prior Genitourinary Problems: similar symptoms Sexual [place] History: less than 2 months ago Modifying Factors: Worsens With Movement, Worsens With Palpation Allergies and Home Medications Allergies Coded Allergies: No Known Drug Allergies (Unverified , 07/04/10) Home Medications Docusate Sodium 100 Mg Capsule, 100 MG PO BID PRN for CONSTIPATION-1ST LINE Prescribed by: CABRERA FANG on 04/01/192115 Ferrous Sulfate 325 Mg Tablet, 325 MG PO DAILY@0800 Prescribed by: CABRERA FANG on 04/01/192115 Hydrocodone Bit/Acetaminophen 1 Tab Tab, 1 TAB PO Q4H PRN for PAIN-MODERATE Prescribed by: CABRERA FANG on 04/01/192115 Ibuprofen 600 Mg Tablet, 600 MG PO Q6HR Prescribed by: CABRERA FANG on 04/01/192115 Loratadine 10 Mg Tab, 10 MG PO DAILY, (Reported) [id number]/FA/Omega3/Dha/Fish Oil 1 Each Tab.chew, 2 EACH PO DAILY, (Reported) Sertraline HCl 25 Mg Tablet, 25 MG PO DAILY, (Reported) Patient Home Medication List Home Medication List Reviewed: Yes Review of Systems Review of Systems Constitutional: No chills, No diaphoresis, No fever, No malaise EENTM: no symptoms reported Respiratory: no symptoms reported Cardiovascular: no symptoms reported Gastrointestinal: see HPI, abdominal pain; No constipation, No diarrhea, No loss of appetite, No nausea, No vomiting Genitourinary: denies burning, denies discharge, denies dysuria, denies frequency; flank pain; denies hematuria : No Musculoskeletal: back pain Skin: no symptoms reported Psychiatric/Neurological: No Symptoms Reported All Other Systemes Reviewed Negative Unless Noted: Yes (Negative excepted noted.) Past Zwsmvxr-Idxgtu-Esgsaw Hx Past Med/Social Hx: Reviewed Nursing Past Med/Soc Hx Patient Social History Alcohol Use: Occasionally Uses Recreational Drug Use: No Smoking Status: Former Smoker Former Smoker, Quit: Sep 06, 2015 Recent Foreign Travel: No Contact w/Someone Who Travel: No Recent Infectious Disease Expo: No Recent Hopitalizations: No Physical Abuse: No Sexual Abuse: No Mistreated: No Fear: No Immunizations Up To Date Tetanus Booster (TDap): Unknown Seasonal Allergies Seasonal Allergies: Yes Past Medical History Surgeries: No Respiratory: No Cardiac: No Neurological: No 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 No Pertinent Family Hx Physical Exam Vital Signs Vital Signs - First Documented 08/24/19 15:29 Temp 37.3 Pulse 93 Resp 16 B/P (MAP) 106/77 (87) Pulse Ox 97 Capillary Refill : Less Than 3 Seconds Height, Weight, BMI Height: 5'2.00" Weight: 206lbs. 4.0oz. [id number]; 29.00 BMI Method:Stated General Appearance: WD/WN, no apparent distress HEENT: PERRL/EOMI, pharynx normal Neck: non-tender, supple, normal inspection Cardiovascular: normal peripheral pulses, regular rate, rhythm, no edema, no gallop, no murmur Respiratory: lungs clear, normal breath sounds, no respiratory distress, no accessory muscle use Gastrointestinal: normal bowel sounds, soft, no organomegaly; No distended; guarding (BLQ and suprapubic); No rebound; tenderness (generalized abdominal and bilat flank tenderness); No hernia, No mass; other (bilat flank tenderness (R>L). Negative psoas sign or rovsing sign.) Back: normal inspection, CVA tenderness (R); No CVA tenderness (L) Extremities: no pedal edema, no calf tenderness, normal capillary refill Neurologic/Psychiatric: alert, normal mood/affect, oriented x 3 Skin: normal color, warm/dry Progress/Results/Core Measures Suspected Sepsis Recent Fever Within 48 Hours: No Infection Criteria Present: None New/Unexplained Altered Menta: No Sepsis Screen: No Definite Risk SIRS Temperature: Pulse: 93 Respiratory Rate: 16 Laboratory Tests 08/24/19 15:42: White Blood Count 16.0H Blood Pressure 106 /77 Mean: 87 Laboratory Tests 08/24/19 15:42: Creatinine 0.68, Platelet Count 368, Total Bilirubin 0.5 Results/Orders Lab Results Laboratory Tests Test 08/24/19 15:30 08/24/19 15:42 Range/Units Urine Color YELLOW Urine Clarity SLIGHTLY CLOUDY Urine pH 5 5-9 Urine Specific [place] 1.025 H 1.016-1.022 Urine Protein 1+ H NEGATIVE Urine Glucose (UA) NEGATIVE NEGATIVE Urine Ketones 4+ H NEGATIVE Urine Nitrite NEGATIVE NEGATIVE Urine Bilirubin NEGATIVE NEGATIVE Urine Urobilinogen NORMAL NORMAL MG/DL Urine Leukocyte Esterase 1+ H NEGATIVE Urine RBC (Auto) NEGATIVE NEGATIVE Urine RBC RARE /HPF Urine WBC RARE /HPF Urine Squamous Epithelial Cells 5-10 /HPF Urine Crystals NONE /LPF Urine Bacteria MODERATE H /HPF Urine Casts NONE /LPF Urine Mucus NEGATIVE /LPF Urine Culture Indicated NO Urine Opiates Screen NEGATIVE NEGATIVE Urine Oxycodone Screen NEGATIVE NEGATIVE Urine Methadone Screen NEGATIVE NEGATIVE Urine Propoxyphene Screen NEGATIVE NEGATIVE Urine Barbiturates Screen NEGATIVE NEGATIVE Ur Tricyclic Antidepressants Screen NEGATIVE NEGATIVE Urine Phencyclidine Screen NEGATIVE NEGATIVE Urine Amphetamines Screen NEGATIVE NEGATIVE Urine Methamphetamines Screen NEGATIVE NEGATIVE Urine Benzodiazepines Screen NEGATIVE NEGATIVE Urine Cocaine Screen NEGATIVE NEGATIVE Urine Cannabinoids Screen POSITIVE H NEGATIVE White Blood Count 16.0 H 4.3-11.0 10^3/uL Red Blood Count 4.41 4.35-5.85 10^6/uL Hemoglobin 12.9 11.5-16.0 G/DL Hematocrit 38 35-52 % Mean Corpuscular Volume 85 80-99 FL Mean Corpuscular Hemoglobin 29 25-34 PG Mean Corpuscular Hemoglobin Concent 34 32-36 G/DL Red Cell Distribution Width 13.1 10.0-14.5 % Platelet Count 368 130-400 10^3/uL Mean Platelet Volume 9.4 7.4-10.4 FL Neutrophils (%) (Auto) 88 H 42-75 % Lymphocytes (%) (Auto) 7 L 12-44 % Monocytes (%) (Auto) 5 0-12 % Eosinophils (%) (Auto) 0 0-10 % Basophils (%) (Auto) 0 0-10 % Neutrophils # (Auto) 14.1 H 1.8-7.8 X 10^3 Lymphocytes # (Auto) 1.1 1.0-4.0 X 10^3 Monocytes # (Auto) 0.8 0.0-1.0 X 10^3 Eosinophils # (Auto) 0.0 0.0-0.3 10^3/uL Basophils # (Auto) 0.0 0.0-0.1 10^3/uL Neutrophils % (Manual) 89 % Lymphocytes % (Manual) 4 % Monocytes % (Manual) 3 % Eosinophils % (Manual) 0 % Basophils % (Manual) 0 % Band Neutrophils 4 % Blood Morphology Comment NORMAL Sodium Level 137 135-145 MMOL/L Potassium Level 3.8 3.6-5.0 MMOL/L Chloride Level 103 98-107 MMOL/L Carbon Dioxide Level 21 21-32 MMOL/L Anion Gap 13 5-14 MMOL/L Blood Urea Nitrogen 9 7-18 MG/DL Creatinine 0.68 0.60-1.30 MG/DL Estimat Glomerular Filtration Rate > 60 BUN/Creatinine Ratio 13 Glucose Level 96 70-105 MG/DL Calcium Level 9.7 8.5-10.1 MG/DL Corrected Calcium 8.5-10.1 MG/DL Total Bilirubin 0.5 0.1-1.0 MG/DL Aspartate Amino Transf (AST/SGOT) 16 5-34 U/L Alanine Aminotransferase (ALT/SGPT) 19 0-55 U/L Alkaline Phosphatase 128 40-136 U/L Total Protein 7.6 6.4-8.2 GM/DL Albumin 4.7 H 3.2-4.5 GM/DL My Orders Orders - AUTUMN LEHMAN Ed Iv/Invasive Line Start (08/24/19 15:40) Urine Bedside (08/24/19 15:40) Cbc With Automated Diff (08/24/19 15:40) Comprehensive Metabolic Panel (08/24/19 15:40) Ua Culture If Indicated (08/24/19 15:40) Manual Differential (08/24/19 15:42) Ns Iv 1000 Ml (Sodium Chloride 0.9%) (08/24/19 15:57) Ct Abd/Pelvis Wo(Kidney Stone) (08/24/19 15:57) Ketorolac Injection (Toradol Injection) (08/24/19 15:57) Drug Screen Stat (Urine) (08/24/19 16:25) Piperacillin Sodium/Tazobactam (Zosyn Vi (08/24/19 16:45) Metoclopramide Injection (Reglan Injecti (08/24/19 16:41) Famotidine Injection (Pepcid Injection) (08/24/19 16:41) Ed Iv/Invasive Line Start (08/24/19 16:41) Medications Given in ED Current Medications Medications Dose Ordered Sig/Marcy Route Start Time Stop Time Status Last Admin Dose Admin Sodium Chloride 1,000 ml @ 0 mls/hr Q0M ONCE IV 08/24/19 15:57 08/24/19 15:59 DC 08/24/19 16:37 0 MLS/HR Vital Signs/I&O 08/24/19 15:29 Temp 37.3 Pulse 93 Resp 16 B/P (MAP) 106/77 (87) Pulse Ox 97 Capillary Refill : Less Than 3 Seconds Blood Pressure Mean: 87 Diagnostic Imaging Diagonstic Imaging: CT Plain Films/CT/US/NM/MRI: abdomen, pelvis Comments CT ABD/PELVIS WO(KIDNEY STONE) PROCEDURE: CT urinary tract, rule out kidney stone. TECHNIQUE: Multiple contiguous axial images were obtained through the abdomen and pelvis without the use of intravenous contrast. Auto Exposure Controls were utilized during the CT exam to meet ALARA standards for radiation dose reduction. DATE: August 24, 2019. COMPARISON: None. INDICATION: 24-year-old female, right flank and abdominal pain. FINDINGS: There are limitations for evaluation of the abdominal organs, neoplastic processes, abscess, and limited evaluation of the vasculature relating to the lack of intravenous contrast. The visualized portions of the lung bases are clear. The heart is not enlarged. There is no pericardial effusion. The liver is normal in size and contour. There is no noncontrast apparent liver lesion. The gallbladder is unremarkable. There is no biliary ductal dilation. The main pancreatic duct is not abnormally dilated. Noncontrast evaluation of the pancreatic parenchyma is unremarkable. The spleen is normal in size. The adrenal glands are unremark able. Unremarkable appearance of the renal parenchyma. The urinary collecting systems are not distended. There is a calcification very near the expected course of the left ureter on axial image 101 measuring 2.5 mm in size which potentially may reflect a left distal ureteral stone. There is a calcification on the right which is most likely external to the right ureter given the size of the calcification and lack of right hydronephrosis. The distal course of the right ureter is difficult to track. The urinary bladder is underdistended and not well evaluated. There is an intrauterine contraceptive device within the midline uterus, likely within the endometrial cavity. The intestinal tract is not distended. There is a very large appendicolith with marked dilation of the appendix measuring up to approximately 2 cm in diameter. There is some inflammatory stranding at the proximal aspect of the appendix. Findings are concerning for acute appendicitis. There is no free intraperitoneal air. There is no drainable fluid collection. There is no free pelvic fluid. There is no identified abnormally enlarged lymph node in the abdomen or pelvis which meets CT size criteria for adenopathy. There is no identified acute bony abnormality. IMPRESSION: CT ABDOMEN AND PELVIS. 1. Very large appendicolith with marked dilation of the appendix and inflammatory stranding in the region consistent with acute appendicitis. No evidence of perforation or abscess. 2. Calcification which is near the expected course of the left ureter measuring 2.5 mm in size. This is uncertain to be within the left distal ureter or external to the ureter. There is no left hydronephrosis. There is no otherwise noted renal or ureteral stone. Dictated on workstation # [id number] Reviewed: Reviewed by Me (radiology report reviewed by me) Departure Communication (Admissions) Time/Spoke to Admitting Phy: 16:40 Dr. Perez graciously accepts pt to his surgical service for lap appy, IVF, and IV antibiotics. Patient seen and evaluated. Initial labs and a CT abdomen/pelvis obtained. Patient given toradol 30mg IV for pain and 1 liter of NS. Laboratory and diagnostic findings discussed with the patient. I Have discussed plan for general surgery consult with planned laparoscopic appendectomy today. Patient verbalizes understanding and agrees with the treatment plan. Patient given Zosyn 4.5 g IV, Pepcid 20 mg IV, and Reglan 10 mg IV 1 dose in the emergency department. Plan for admit discussed with Dr. Childress, he agrees with the plan of care. Impression Primary Impression: Acute appendicitis Qualified Codes: K35.80 - Unspecified acute appendicitis Additional Impression: Volume depletion Disposition: ADMITTED INPATIENT Condition: Stable Admissions Decision to Admit Reason: Admit from ER (General) Decision to Admit/Date: Aug 24, 2019 Time/Decision to Admit Time: 16:38 Departure-Patient Inst. Referrals: CABRERA FANG DO (PCP) Primary Care Physician NO,LOCAL PHYSICIAN (Family) Primary Care Physician Copy Copies To 1: CABRERA FANG GRETCHEN L PA Aug 24, 2019 16:14
[2019-08-24 16:19] LABS: BAND NEUTROPHILS 4 %; BASOPHILS % (MANUAL) 0 %; EOSINOPHILS % (MANUAL) 0 %; LYMPHOCYTES % (MANUAL) 4 %; MONOCYTES % (MANUAL) 3 %; NEUTROPHILS % (MANUAL) 89 %; RBC MORPH NORMAL
--- NOTE | 2019-08-24 16:28 | Diagnostic Imaging Report ---
PROCEDURE: CT urinary tract, rule out kidney stone. TECHNIQUE: Multiple contiguous axial images were obtained through the abdomen and pelvis without the use of intravenous contrast. Auto Exposure Controls were utilized during the CT exam to meet ALARA standards for radiation dose reduction. DATE: August 24, 2019. COMPARISON: None. INDICATION: 24-year-old female, right flank and abdominal pain. FINDINGS: There are limitations for evaluation of the abdominal organs, neoplastic processes, abscess, and limited evaluation of the vasculature relating to the lack of intravenous contrast. The visualized portions of the lung bases are clear. The heart is not enlarged. There is no pericardial effusion. The liver is normal in size and contour. There is no noncontrast apparent liver lesion. The gallbladder is unremarkable. There is no biliary ductal dilation. The main pancreatic duct is not abnormally dilated. Noncontrast evaluation of the pancreatic parenchyma is unremarkable. The spleen is normal in size. The adrenal glands are unremarkable. Unremarkable appearance of the renal parenchyma. The urinary collecting systems are not distended. There is a calcification very near the expected course of the left ureter on axial image 101 measuring 2.5 mm in size which potentially may reflect a left distal ureteral stone. There is a calcification on the right which is most likely external to the right ureter given the size of the calcification and lack of right hydronephrosis. The distal course of the right ureter is difficult to track. The urinary bladder is underdistended and not well evaluated. There is an intrauterine contraceptive device within the midline uterus, likely within the endometrial cavity. The intestinal tract is not distended. There is a very large appendicolith with marked dilation of the appendix measuring up to approximately 2 cm in diameter. There is some inflammatory stranding at the proximal aspect of the appendix. Findings are concerning for acute appendicitis. There is no free intraperitoneal air. There is no drainable fluid collection. There is no free pelvic fluid. There is no identified abnormally enlarged lymph node in the abdomen or pelvis which meets CT size criteria for adenopathy. There is no identified acute bony abnormality. IMPRESSION: CT ABDOMEN AND PELVIS. 1. Very large appendicolith with marked dilation of the appendix and inflammatory stranding in the region consistent with acute appendicitis. No evidence of perforation or abscess. 2. Calcification which is near the expected course of the left ureter measuring 2.5 mm in size. This is uncertain to be within the left distal ureter or external to the ureter. There is no left hydronephrosis. There is no otherwise noted renal or ureteral stone. Dictated by: Dictated on workstation # [id number]
[2019-08-24 16:41] LABS: AMPHETAMINE SCREEN, URINE NEGATIVE (NEGATIVE); BARBITURATE SCREEN URINE NEGATIVE (NEGATIVE); BENZODIAZEPINES SCREEN URINE NEGATIVE (NEGATIVE); CANNABINOID SCREEN, URINE POSITIVE (NEGATIVE); COCAINE SCREEN URINE NEGATIVE (NEGATIVE); METHADONE STAT NEGATIVE (NEGATIVE); METHAMPHETAMINE SCREEN URINE S NEGATIVE (NEGATIVE); OPIATE SCREEN URINE NEGATIVE (NEGATIVE); OXYCODONE STAT NEGATIVE (NEGATIVE); PROPOXYPHENE STAT NEGATIVE (NEGATIVE); TRICYCLIC ANTIDEPRESSANTS SCRE NEGATIVE (NEGATIVE)
[2019-08-24] MEDS ORDERED: METOCLOPRAMIDE INJ 10 MG/2 ML (REGLAN) IVP STA (16:41)
[2019-08-24] MEDS ORDERED: FAMOTIDINE 20MG/2ML IV (PEPCID) IV STA (16:41)
[2019-08-24] MEDS ORDERED: PIPERACILLIN SODIUM/TAZOBACTAM 4.5 GM in NS (IVPB) 100 ML IV ONE (16:45)
[2019-08-24] MEDS ORDERED: BUP/EPI 0.5% 1:200,000 (SENSORCAINE) 30 ML VIAL ONE (17:32)
--- NOTE | 2019-08-24 17:33 | History & Physical-Surgical ---
RODDYVERENICE,MED STUDENT 08/24/19 1733: History of Present Illness History of Present Illness Reason for visit/HPI Patient seen and examined in ED. She presented to the ED with abdominal pain that began last night and has been constant and worsening since. Pain is described as diffuse, and worse in the RLQ. It is associated with nausea. Nothing makes it better. It is made worse by laying on either side. She rates the pain as 6/10. Patient was seen in urgent care earlier today and was diagnosed with UTI. She was prescribed amoxicillin and she took one dose today at 1300. She is 4 months post and is at this time. She has been NPO since 1200 today. Denies nausea, vomiting, melena, hematochezia, chest pain, or shortness of breath. Date of Admission 08/24/2019 Time Seen by a Provider: 17:15 I consulted on this patient on 08/24/19 17:15 Attending Physician Admitting Physician Shamar Jefferson DO Consult Allergies and Home Medications Allergies Coded Allergies: No Known Drug Allergies (Unverified , 07/04/10) Home Medications Docusate Sodium 100 Mg Capsule, 100 MG PO BID PRN for CONSTIPATION-1ST LINE Prescribed by: CABRERA FANG on 04/01/192115 Ferrous Sulfate 325 Mg Tablet, 325 MG PO DAILY@0800 Prescribed by: CABRERA FANG on 04/01/192115 Hydrocodone Bit/Acetaminophen 1 Tab Tab, 1 TAB PO Q4H PRN for PAIN-MODERATE Prescribed by: CABRERA FANG on 04/01/192115 Ibuprofen 600 Mg Tablet, 600 MG PO Q6HR Prescribed by: CABRERA FANG on 04/01/192115 Loratadine 10 Mg Tab, 10 MG PO DAILY, (Reported) Kot017/FA/Omega3/Dha/Fish Oil 1 Each Tab.chew, 2 EACH PO DAILY, (Reported) Sertraline HCl 25 Mg Tablet, 25 MG PO DAILY, (Reported) Patient Home Medication List Home Medication List Reviewed: Yes Past Xhuirhl-Adpspy-Wetrxw Hx Patient Social History Alcohol Use: Occasionally Uses (1/week) Recreational Drug Use: Yes (marijuana 1x/week) Smoking Status: Former Smoker Former Smoker, Quit: Sep 06, 2015 Recent Foreign Travel: No Contact w/Someone Who Travel: No Recent Infectious Disease Expo: No Recent Hopitalizations: No Immunizations Up To Date Tetanus Booster (TDap): Unknown Seasonal Allergies Seasonal Allergies: Yes Surgeries History of Surgeries: No Respiratory History of Respiratory Disorde: No Cardiovascular History of Cardiac Disorders: No Neurological History of Neurological Disord: No Reproductive System Hx Reproductive Disorders: Yes (HORMONAL IMBALANCE- TOO MUCH TESTOSTERONE) Genitourinary History of Genitourinary Disor: Yes Genitourinary Disorders: Kidney Infection, UTI-Chronic Gastrointestinal History of Gastrointestinal Di: No Musculoskeletal History of Musculoskeletal Dis: No Endocrine History of Endocrine Disorders: No HEENT History of HEENT Disorders: No Cancer History of Cancer: No Psychosocial History of Psychiatric Problem: Yes Behavioral Health Disorders: Anxiety, Depression Integumentary History of Skin or Integumenta: No Blood Transfusions History of Blood Disorders: No Adverse Reaction to a Blood Tr: No Family Medical History Significant Family History: No Pertinent Family Hx Family Medial History: Patient reports no known family medical history. Review of Systems Constitutional: no symptoms reported EENTM: no symptoms reported Respiratory: no symptoms reported Cardiovascular: no symptoms reported Gastrointestinal: see HPI, abdominal pain (RLQ); No melena; nausea; No vomiting Genitourinary: other (UTI diagnosed today) Musculoskeletal: no symptoms reported Skin: no symptoms reported Psychiatric/Neurological: No Symptoms Reported Physical Exam Vital Signs Vital Signs - First Documented 08/24/19 15:29 Temp 37.3 Pulse 93 Resp 16 B/P (MAP) 106/77 (87) Pulse Ox 97 Capillary Refill : Less Than 3 Seconds Height, Weight, BMI Height: 5'2.00" Weight: 206lbs. 4.0oz. 93.961373ek; 29.00 BMI Method:Stated General Appearance: No Apparent Distress, WD/WN HEENT: Pharynx Normal, Moist Mucous Membranes Neck: Full Range of Motion, Normal Inspection, Non Tender, Supple Respiratory: Chest Non Tender, No Accessory Muscle Use, No Respiratory Distress Cardiovascular: Regular Rate, Rhythm, Normal Peripheral Pulses Gastrointestinal: Soft; No Distended; Tenderness (diffusely tender, mostly suprapubic and in RLQ) Rectal: Deferred Back: Normal Inspection Extremity: Normal Inspection, Normal Range of Motion, Non Tender Neurologic/Psychiatric: Alert, Oriented x3, Normal Mood/Affect Skin: Normal Color, Warm/Dry Lymphatic: No Adenopathy Data Review Labs Laboratory Tests 08/24/19 15:30: Urine Color YELLOW, Urine Clarity SLIGHTLY CLOUDY, Urine pH 5, Urine Specific [place] 1.025H, Urine Protein 1+H, Urine Glucose (UA) NEGATIVE, Urine Ketones 4+H, Urine Nitrite NEGATIVE, Urine Bilirubin NEGATIVE, Urine Urobilinogen NORMAL, Urine Leukocyte Esterase 1+H, Urine RBC (Auto) NEGATIVE, Urine RBC RARE, Urine WBC RARE, Urine Squamous Epithelial Cells 5-10, Urine Crystals NONE, Urine Bacteria MODERATEH, Urine Casts NONE, Urine Mucus NEGATIVE, Urine Culture Indicated NO, Urine Opiates Screen NEGATIVE, Urine Oxycodone Screen NEGATIVE, Urine Methadone Screen NEGATIVE, Urine Propoxyphene Screen NEGATIVE, Urine Barbiturates Screen NEGATIVE, Ur Tricyclic Antidepressants Screen NEGATIVE, Urine Phencyclidine Screen NEGATIVE, Urine Amphetamines Screen NEGATIVE, Urine Methamphetamines Screen NEGATIVE, Urine Benzodiazepines Screen NEGATIVE, Urine Cocaine Screen NEGATIVE, Urine Cannabinoids Screen POSITIVEH 08/24/19 15:42: White Blood Count 16.0H, Red Blood Count 4.41, Hemoglobin 12.9, Hematocrit 38, Mean Corpuscular Volume 85, Mean Corpuscular Hemoglobin 29, Mean Corpuscular Hemoglobin Concent 34, Red Cell Distribution Width 13.1, Platelet Count 368, Mean Platelet Volume 9.4, Neutrophils (%) (Auto) 88H, Lymphocytes (%) (Auto) 7L, Monocytes (%) (Auto) 5, Eosinophils (%) (Auto) 0, Basophils (%) (Auto) 0, Neutrophils # (Auto) 14.1H, Lymphocytes # (Auto) 1.1, Monocytes # (Auto) 0.8, Eosinophils # (Auto) 0.0, Basophils # (Auto) 0.0, Neutrophils % (Manual) 89, Lymphocytes % (Manual) 4, Monocytes % (Manual) 3, Eosinophils % (Manual) 0, Basophils % (Manual) 0, Band Neutrophils 4, Blood Morphology Comment NORMAL, Sodium Level 137, Potassium Level 3.8, Chloride Level 103, Carbon Dioxide Level 21, Anion Gap 13, Blood Urea Nitrogen 9, Creatinine 0.68, Estimat Glomerular Filtration Rate > 60, BUN/Creatinine Ratio 13, Glucose Level 96, Calcium Level 9.7, Corrected Calcium , Total Bilirubin 0.5, Aspartate Amino Transf (AST/SGOT) 16, Alanine Aminotransferase (ALT/SGPT) 19, Alkaline Phosphatase 128, Total Protein 7.6, Albumin 4.7H Assessment/Plan Assessment/Plan Admission Diagonsis Acute appendicitis UTI Admission Status: Observation Assessment/Plan Acute appendicitis Appendicolith RLQ abdominal pain Marijuana use UTI Consent for laparoscopic appendectomy, all other indicated procedures Plan to take to OR today for laparoscopic appendectomy NPO Continue antibiotics, IV fluids, antiemetics JEFFERSONSHAMAR TOMPKINS Zenia DO 08/24/19 8565: History of Present Illness History of Present Illness Reason for visit/HPI rlq abdominal pain began last night. constant worsening. aching type pain. having nausea as well. movement makes worse. pain medication makes better. seen in urgent care and diagnosed with UTI. Started antibiotics. Ct scan demonstrating findings consistent with acute appendicitis and appendicolith. denies vomiting, fever sweats chills shortness of breath or chest pain. On Amoxicillin. Allergies and Home Medications Allergies Coded Allergies: No Known Drug Allergies (Unverified , 07/04/10) Home Medications Docusate Sodium 100 Mg Capsule, 100 MG PO BID PRN for CONSTIPATION-1ST LINE Prescribed by: CABRERA FANG on 04/01/192115 Ferrous Sulfate 325 Mg Tablet, 325 MG PO DAILY@0800 Prescribed by: CABRERA FANG on 04/01/192115 Hydrocodone Bit/Acetaminophen 1 Tab Tab, 1 TAB PO Q4H PRN for PAIN-MODERATE Prescribed by: CABRERA FANG on 04/01/192115 Ibuprofen 600 Mg Tablet, 600 MG PO Q6HR Prescribed by: CABRERA FANG on 04/01/192115 Loratadine 10 Mg Tab, 10 MG PO DAILY, (Reported) Ass526/FA/Omega3/Dha/Fish Oil 1 Each Tab.chew, 2 EACH PO DAILY, (Reported) Sertraline HCl 25 Mg Tablet, 25 MG PO DAILY, (Reported) Patient Home Medication List Home Medication List Reviewed: Yes Past Qxorkpo-Kxylyd-Lyjuwn Hx Patient Social History Alcohol Use: Occasionally Uses (1/week) Recreational Drug Use: Yes (marijuana 1x/week) Surgeries History of Surgeries: No Respiratory History of Respiratory Disorde: No Cardiovascular History of Cardiac Disorders: No Neurological History of Neurological Disord: No Reproductive System : No Genitourinary Genitourinary Disorders: Kidney Infection Musculoskeletal History of Musculoskeletal Dis: No Endocrine History of Endocrine Disorders: No HEENT History of HEENT Disorders: No Cancer History of Cancer: No Psychosocial Behavioral Health Disorders: Anxiety, Depression Family Medical History Significant Family History: No Pertinent Family Hx Family Medial History: Patient reports no known family medical history. Review of Systems Constitutional: no symptoms reported EENTM: no symptoms reported Respiratory: no symptoms reported Cardiovascular: no symptoms reported Gastrointestinal: see HPI, abdominal pain (RLQ) Genitourinary: see HPI, other (UTI diagnosed today) Musculoskeletal: no symptoms reported Skin: no symptoms reported Psychiatric/Neurological: No Symptoms Reported Physical Exam General Appearance: No Apparent Distress, WD/WN HEENT: PERRL/EOMI, Normal ENT Inspection Neck: Full Range of Motion, Normal Inspection, Non Tender, Supple Respiratory: Chest Non Tender, No Accessory Muscle Use, No Respiratory Distress Cardiovascular: Normal Peripheral Pulses Gastrointestinal: Soft, Tenderness (RLQ) Rectal: Deferred Back: Normal Inspection Extremity: Normal Inspection, Normal Range of Motion, Non Tender Neurologic/Psychiatric: Alert, Oriented x3, Normal Mood/Affect Skin: Normal Color, Warm/Dry Lymphatic: No Adenopathy Assessment/Plan Assessment/Plan Admission Diagonsis acute appendicitis appendicolith uti rlq abd pain marijuana use Admission Status: Observation Assessment/Plan acute appendicitis appendicolith uti rlq abd pain marijuana use Consent for laparoscopic appendectomy, all other indicated procedures Plan to take to OR today for laparoscopic appendectomy NPO Continue antibiotics, IV fluids, antiemetics Supervisory-Addendum Brief Verification & Attestation Participated in pt care: history, MDM, physical Personally performed: exam, history, MDM, supervision of care Care discussed with: Medical Student Procedures: n/a Results interpretation: Verified all documentation Verification and Attestation of Medical Student E/M Service A medical student performed and documented this service in my presence. I rev iewed and verified all information documented by the medical student and made modifications to such information, when appropriate. I personally performed the physical exam and medical decision making. Shamar Jefferson, Aug 24, 2019,18:00 VERENICE PEREYRA,MED STUDENT Aug 24, 2019 17:33 SHAMAR JEFFERSON DO Aug 24, 2019 17:57
[2019-08-24] MEDS ORDERED: ROCURONIUM 10 MG/ML 5 ML SYRINGE IV ONE ×2 (17:45→19:08)
[2019-08-24] MEDS ORDERED: SUCCINYLCHOLINE INJ 100 MG/5 ML SYR ONE ×2 (17:45→19:08)
[2019-08-24] MEDS ORDERED: proPOfol 200 MG/20 ML (DIPRIVAN) VIAL IV ONE (17:45)
[2019-08-24] MEDS ORDERED: fentaNYL INJECTION 100 MCG/2 ML AMP ONE (17:46)
[2019-08-24] MEDS ORDERED: MIDAZOLAM 2 MG/2 ML (VERSED) VIAL ONE (17:46)
[2019-08-24] MEDS: LACTATED RINGERS 1,000 ML IV PRN ×2 (18:04→19:13)
[2019-08-24] MEDS ORDERED: LACTATED RINGERS 1,000 ML IV SCH (18:15)
[2019-08-24] MEDS ORDERED: ceFAZolin INJECTION 1,000 MG ONE (18:29)
[2019-08-24] MEDS ORDERED: GLYCOPYRROLATE 0.2 MG/ML (ROBINUL) 2 ML VIAL ONE (18:40)
[2019-08-24] MEDS ORDERED: LIDOCAINE PF 2% 5 ML (XYLOCAINE) VIAL ONE (18:40)
[2019-08-24] MEDS ORDERED: NEOSTIGMINE 3 MG/3 ML VIAL ONE (18:40)
[2019-08-24] MEDS ORDERED: morphine INJ 10 MG/ML 1ML (SYR OR VIAL) ONE (19:00)
[2019-08-24] MEDS ORDERED: ACHD5005 PO (19:14)
--- NOTE | 2019-08-24 19:19 | Discharge Inst-Simple/Standard ---
Discharge Inst-Standard Discharge Medications New, Converted or Re-Newed RX: RX on Chart Patient Instructions/Follow Up Plan of Care/Instructions/FU: 2-3 weeks Chris Activity as Tolerated: No Discharge Diet: Regular Diet Other Inst to Patient Follow up Appt: Make appointment for 2-3 week. Instructions: No lifting greater than 10 pounds. No strenuous activity. May shower in 24 hours, no tub bath or soaking. Use incentive spirometer at home as directed. No Smoking Skin/Wound Care: You have special glue over incisions it will fall off on its own. Symptoms to Report: Appetite Changes, Extremity Discoloration, Numbness/Tingling, Swelling Increased, Bleeding Excessive, Eyesight Changes, Pain Increased, Urine Color Change, Constipation(Persistent), Fever over 101 degree F, Pain/Pressure in c hest, Urinating Difficulty, Cough Up/Vomit Blood, Heart Beat Irreg/Pounding, Pain/Pressure in jaw, Vaginal Bleeding Increase, Cramps in feet or legs, Lightheadedness, Pain/Pressure in shoulder, Diarrhea(Persistent), Memory Changes Suddenly, Questions/Concerns, Weight gain consecutive days, Dizziness/Fainting, Nausea/Vomiting, Shortness of Breath, Weight gain over 2 pounds If questions or concerns contact your physician Or seek help at emergency department. SHAMAR JEFFERSON DO Aug 24, 2019 19:19
--- NOTE | 2019-08-24 19:21 | Progress Note-Post Operative ---
Post-Operative Progess Note Surgeon (s)/Hospital Nurse (s) Surgeon SHAMAR JEFFERSON DO Hospital Nurse: na Pre-Operative Diagnosis acute appendicitis, appendicolith Post-Operative Diagnosis same Procedure & Operative Findings Date of Procedure 08/24/19 Procedure Performed/Findings lap appy Anesthesia Type gen Estimated Blood Loss Estimated blood loss (mL): min Specimens/Packing Specimens Removed appendix SHAMAR JEFFERSON DO Aug 24, 2019 19:21
[2019-08-24] MEDS ORDERED: SEVOFLURANE (ULTANE) 15 ML INHAL SOLN ONE (19:24)
[2019-08-24 19:29] VITALS: BP 96/78
[2019-08-24 19:40] VITALS: BP 90/50
[2019-08-24] MEDS ORDERED: ONDANSETRON 4 MG/2 ML (SDV) Z0FRAN IVP PRN (19:45)
[2019-08-24] MEDS ORDERED: HYDROmorphone 2 MG/ML VIAL (DILAUDID) IV ONE (19:45)
[2019-08-24] MEDS ORDERED: morphine INJ 10 MG/ML 1ML (SYR OR VIAL) IVP ONE (19:45)
[2019-08-24 19:50] VITALS: BP 100/60
[2019-08-24 20:00] VITALS: BP 98/55
[2019-08-24 20:10] VITALS: BP 100/56
[2019-08-24 20:20] VITALS: BP 101/56
--- NOTE | 2019-08-24 20:30 | NUR ---
PT TO ROOM FROM OR. PT ALERT AND ORIENTED ON ROOM AIR. LAP SITE X3 TO ABD WITH DERMABOND. ICE BAGS APPLIED. SITES ARE DRY AND INTACT. NO C/O PAIN AT THIS TIME. FAMILY AT BEDSIDE. WILL CONTINUE TO MONITOR.
--- NOTE | 2019-08-24 21:10 | NUR ---
PT ATE JELLO AND ABLE TO DRINK WATER WITH NO N/V. PT URINATED BRIGHT YELLOW URINE WITH NO PROBLEMS. PT AMBULATED WITH PCT IN HALLWAY WITH NO COMPLAINTS. PT CONTINUES TO HAVE NO PAIN AT THIS TIME. WILL DC PT PER DR. JEFFERSON ORDERS.
--- NOTE | 2019-08-24 22:00 | NUR ---
IV REMOVED FROM LEFT AC. NO REDNESS OR EDEMA. DC PACKET REVIEWED WITH PT AND FAMILY. PT STATES UNDERSTANDING. RX GIVEN TO PT AT THIS TIME. PT TAKEN DOWN IN WHEELCHAIR BY PCT AT THIS TIME.
--- NOTE | 2019-08-25 02:57 | OPERATIVE REPORT ---
DATE OF SERVICE: 08/24/2019 PREOPERATIVE DIAGNOSIS: Acute appendicitis with appendicolith. POSTOPREATIVE DIAGNOSIS: Acute appendicitis with appendicolith. PROCEDURE: Laparoscopic appendectomy. SURGEON: Shamar Perez DO ANESTHESIA: General. ESTIMATED BLOOD LOSS: Minimal. COMPLICATIONS: None. INDICATIONS: The patient is a 24-year-old female with right lower quadrant abdominal pain. She had a CT scan demonstrating large appendicolith and changes suggestive of acute appendicitis. Her white count was 16,000 and her physical exam was consistent with acute appendicitis. The patient understands risks and benefits of procedure and wished to proceed with procedure. Consent was signed in the chart. DESCRIPTION OF PROCEDURE: The patient was taken to the operating suite, was prepped and draped in sterile fashion. Surgical pause was performed. A 5 mm incision was made at the umbilicus. Allyson was used to dissect down to the fascia, grasped and elevated. Veress needle was inserted. Pneumoperitoneum was achieved. Under direct visualization of the laparoscope, a 5 mm trocar was then placed using the Visiport. Under direct visualization of the laparoscope, a 5 mm trocar was placed in the suprapubic region and a 12 mm trocar was placed in the left lower quadrant. The appendix was large, dilated from the appendicolith. The LigaSure was then used to divide the mesoappendix from the appendix all the way down to the base, which then the KIRSTIE 2.5 stapler was then fired, taking a small portion of the cecum due to the size and anatomy distortion of the appendix from the appendicolith. The Endo-KIRSTIE 2.5 reload had to fire across the cecum. The appendix was then placed in an Endobag and removed through the 12 mm trocar site. The abdomen was then irrigated and suctioned. Hemostasis was achieved. The abdomen was then inspected. No other pathology noted. The 12 mm trocar site was then closed with an Endoclose and 0 Vicryl. The abdomen was then desufflated, the trocars were removed. The skin was then closed using 4-0 Monocryl in subcuticular fashion and the area was washed and dried and Skin Affix was placed over the incisions. The patient tolerated procedure well without any complications. She was taken to recovery room in stable condition. Job ID: [id number] DocumentID: [id number] Dictated Date: 08/24/2019 19:26:17 Mechanical Manufacturing Engineer Date: 08/25/2019 00:45:03 Dictated By: SHAMAR PEREZ DO
--- NOTE | 2019-08-25 10:25 | Anesthesia-General Post-Op ---
General Patient Condition Mental Status/LOC: Same as Preop Cardiovascular: Satisfactory Nausea/Vomiting: Absent Respiratory: Satisfactory Pain: Controlled Complications: Absent Post Op Complications Complications None Follow Up Care/Instructions Patient Instructions None needed. Anesthesia/Patient Condition Patient Condition 08/25/19 0645 late entry: Patient was discharged to home prior to postop visit on post-op day 1. According to nursing, concepcionn was doing well, no complaints, stable vital signs, no apparent adverse anesthesia problems. No complications reported per nursing, thus discharged to home. JASPER STEVENSON CRNA Aug 25, 2019 10:25
== END 2019-08-24 22:02 | disposition home or self-care (01) ==
LOC: EDUNIT# 15:22 → ER 15:23 → SDC 17:33
PROVIDERS: ATTEND Surgery
DX: K35.80 Unspecified acute appendicitis (principal); K38.1 Appendicular concretions; F32.9 Major depressive disorder, single episode, unspecified; F41.9 Anxiety disorder, unspecified; Z87.891 Personal history of nicotine dependence; Z79.891 Long term (current) use of opiate analgesic; Z79.899 Other long term (current) drug therapy
CPT/HCPCS: 36415; 74176; 80053; 80306; 81000; 84703; 85007; 85027; 94664

== ENCOUNTER → 2019-12-08 | Outpatient (CLI) | payer MEDICAID ==
--- NOTE | 2019-12-08 10:12 | Diagnostic Imaging Report ---
CLINICAL INDICATION: Patient with hyperthyroidism. COMPARISONS: None. FINDINGS: THYROID NODULES: None. THYROID GLAND: The thyroid gland has normal size, shape and echogenicity. The right lobe measures 4.5 cm x 1.7 cm x 1.8 cm and the left lobe measures 4.1 cm x 1.5 cm x 1.7 cm in their three dimensions. ISTHMUS: The isthmus is unremarkable and measures 3 mm in thickness. IMPRESSION: Unremarkable ultrasound of the thyroid gland. Dictated by: Dictated on workstation # [id number]
== END ==
LOC: RAD 08:38
PROVIDERS: ATTEND Family Medicine
DX: E05.90 Thyrotoxicosis, unspecified without thyrotoxic crisis or storm (principal)
CPT/HCPCS: 76536

== ENCOUNTER 2022-06-24 11:03 | Emergency (ER) | payer MEDICAID ==
[~2022-06-24] VITALS: Ht 157.4 cm; Wt 76.0 kg
[2022-06-24] MEDS ORDERED: NS IV 1000 ML 1,000 ML IV STA (11:29)
[2022-06-24] MEDS ORDERED: ONDANSETRON 4 MG/2 ML (SDV) Z0FRAN IVP ONE (11:30)
[2022-06-24 11:35] LABS: BASOPHILS % (AUTO) 0 % (0-10); EOSINOPHILS % (AUTO) 0 % (0-10); HEMATOCRIT 41 % (35-52); HEMOGLOBIN 13.9 g/dL (11.5-16.0); LYMPHOCYTES # (AUTO) 0.7 10^3/uL (1.0-4.0); LYMPHOCYTES % (AUTO) 6 % (12-44); MEAN CORPUSCULAR HEMOGLOBIN 30 pg (25-34); MEAN CORPUSCULAR HGB CONC 34 g/dL (32-36); MEAN CORPUSCULAR VOLUME 90 fL (80-99); MEAN PLATELET VOLUME 9.4 fL (9.0-12.2); MONOCYTES # (AUTO) 0.5 10^3/uL (0.0-1.0); MONOCYTES % (AUTO) 5 % (0-12); NEUTROPHILS # (AUTO) 9.2 10^3/uL (1.8-7.8); NEUTROPHILS % (AUTO) 88 % (42-75); PLATELET COUNT 386 10^3/uL (130-400); WHITE BLOOD COUNT 10.5 10^3/uL (4.3-11.0)
--- NOTE | 2022-06-24 11:35 | ED GI ---
General Chief Complaint: Abdominal/GI Problems Stated Complaint: NAUSEA/ABD CRAMPING Source of Information: Patient Exam Limitations: No Limitations (ULICES MILLER) History of Present Illness Date Seen by Provider: Jun 24, 2022 Time Seen by Provider: 11:30 Initial Comments This is a healthy 27-year-old female who presents to the emergency room for evaluation of nausea, mild vomiting and diarrhea. The patient state she has had symptoms for 2 days and does not have severe abdominal pain. She has no ill contacts and nothing specifically makes her symptoms better or worse. She denies fever, trauma, bloody vomit/stools. Timing/Duration: 1 Day Severity/Quality: Moderate Radiation: No Radiation Activities at Onset: None (ULICES MILLER) Allergies and Home Medications Allergies Coded Allergies: No Known Drug Allergies (Unverified , 07/04/10) Patient Home Medication List Home Medication List Reviewed: Yes (ULICES MILLER) Docusate Sodium (Docusate Sodium) 100 Mg Capsule, 100 MG PO BID PRN for CONSTIPATION-1ST LINE Prescribed by: CABRERA FANG on 04/01/192115 Ferrous Sulfate (Ferrous Sulfate) 325 Mg Tablet, 325 MG PO DAILY@0800 Prescribed by: CABRERA FANG on 04/01/192115 Hydrocodone Bit/Acetaminophen (Lortab 5 Mg Tablet) 1 Tab Tab, 1 TAB PO Q4H PRN for PAIN-MODERATE Prescribed by: SHAMAR JEFFERSON on 08/24/191913 Ibuprofen (Ibu) 600 Mg Tablet, 600 MG PO Q6HR Prescribed by: CABRERA FANG on 04/01/192115 Loratadine (Claritin) 10 Mg Tab, 10 MG PO DAILY, (Reported) Entered as Reported by: DIEUDONNE HANSEN on 01/27/10 1419 Ondansetron (Ondansetron Odt) 4 Mg Tab.rapdis, 4 MG PO TID Prescribed by: Washington Miller on 06/24/22 1338 Wxi158/FA/Omega3/Dha/Fish Oil ( Gummies) 1 Each Tab.chew, 2 EACH PO DAILY, (Reported) Entered as Reported by: TRAMAINE GAMING on 03/30/19 1323 Sertraline HCl (Zoloft) 25 Mg Tablet, 25 MG PO DAILY, (Reported) Entered as Reported by: TRAMAINE GAMING on 03/30/19 1323 Review of Systems Review of Systems Constitutional: malaise EENTM: No Symptoms Reported Respiratory: No Symptoms Reported Cardiovascular: No Symptoms Reported Gastrointestinal: Diarrhea, Nausea, Vomiting Genitourinary: No Symptoms Reported Musculoskeletal: no symptoms reported Skin: no symptoms reported (ULICES MILLER) Past Mermfws-Hovnso-Bcepgw Hx Patient Social History Tobacco Use?: No (ULICES MILLER) Immunizations Up To Date Tetanus Booster (TDap): Unknown (ULICES MILLER) Seasonal Allergies Seasonal Allergies: Yes (ULICES MILLER) Past Medical History Surgeries: No Respiratory: No Cardiac: No Neurological: No 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 No Pertinent Family Hx (ULICES MILLER) Physical Exam Vital Signs Vital Signs - First Documented 06/24/22 11:13 Temp 36.6 Pulse 96 Resp 18 B/P (MAP) 111/73 (86) Pulse Ox 99 O2 Delivery Room Air (INDIA QUEVEDO MD) Vital Signs Capillary Refill : (ULICES MILLER) Height/Weight/BMI Height: 5'2.00" Weight: 206lbs. 4.0oz. 93.665321fv; 29.00 BMI Method:Stated General Appearance: WD/WN, no apparent distress HEENT: PERRL/EOMI, TMs normal Neck: non-tender, supple Respiratory: chest non-tender, lungs clear, normal breath sounds Cardiovascular: regular rate, rhythm Gastrointestinal: normal bowel sounds, no organomegaly; No abnormal bowel sounds, No distended, No guarding, No rebound, No tenderness Extremities: normal range of motion, non-tender Back: normal inspection, no CVA tenderness, no vertebral tenderness Neurologic/Psychiatric: leasing agent II-XII nml as tested, no motor/sensory deficits, alert, oriented x 3 Skin: normal color, warm/dry (ULICES MILLER) Progress/Results/Core Measures Results/Orders Lab Results Laboratory Tests Test 06/24/22 11:17 06/24/22 12:26 Range/Units White Blood Count 10.5 4.3-11.0 10^3/uL Red Blood Count 4.57 3.80-5.11 10^6/uL Hemoglobin 13.9 11.5-16.0 g/dL Hematocrit 41 35-52 % Mean Corpuscular Volume 90 80-99 fL Mean Corpuscular Hemoglobin 30 25-34 pg Mean Corpuscular Hemoglobin Concent 34 32-36 g/dL Red Cell Distribution Width 11.9 10.0-14.5 % Platelet Count 386 130-400 10^3/uL Mean Platelet Volume 9.4 9.0-12.2 fL Immature Granulocyte % (Auto) 0 % Neutrophils (%) (Auto) 88 H 42-75 % Lymphocytes (%) (Auto) 6 L 12-44 % Monocytes (%) (Auto) 5 0-12 % Eosinophils (%) (Auto) 0 0-10 % Basophils (%) (Auto) 0 0-10 % Neutrophils # (Auto) 9.2 H 1.8-7.8 10^3/uL Lymphocytes # (Auto) 0.7 L 1.0-4.0 10^3/uL Monocytes # (Auto) 0.5 0.0-1.0 10^3/uL Eosinophils # (Auto) 0.0 0.0-0.3 10^3/uL Basophils # (Auto) 0.0 0.0-0.1 10^3/uL Immature Granulocyte # (Auto) 0.0 0.0-0.1 10^3/uL Neutrophils % (Manual) 90 % Lymphocytes % (Manual) 6 % Monocytes % (Manual) 4 % Eosinophils % (Manual) 0 % Basophils % (Manual) 0 % Band Neutrophils 0 % Blood Morphology Comment NORMAL Sodium Level 132 L 135-145 MMOL/L Potassium Level 4.0 3.6-5.0 MMOL/L Chloride Level 103 98-107 MMOL/L Carbon Dioxide Level 20 L 21-32 MMOL/L Anion Gap 9 5-14 MMOL/L Blood Urea Nitrogen 9 7-18 MG/DL Creatinine 0.66 0.60-1.30 MG/DL Estimat Glomerular Filtration Rate 122 BUN/Creatinine Ratio 14 Glucose Level 91 70-105 MG/DL Calcium Level 9.0 8.5-10.1 MG/DL Corrected Calcium 8.7 8.5-10.1 MG/DL Total Bilirubin 0.6 0.1-1.0 MG/DL Aspartate Amino Transf (AST/SGOT) 24 5-34 U/L Alanine Aminotransferase (ALT/SGPT) 20 0-55 U/L Alkaline Phosphatase 54 40-136 U/L Total Protein 7.4 6.4-8.2 GM/DL Albumin 4.4 3.2-4.5 GM/DL Lipase 14 8-78 U/L Serum Test, Qualitative NEGATIVE NEGATIVE Urine Color YELLOW Urine Clarity CLEAR Urine pH 7.0 5-9 Urine Specific [place] 1.010 L 1.016-1.022 Urine Protein NEGATIVE NEGATIVE Urine Glucose (UA) NEGATIVE NEGATIVE Urine Ketones NEGATIVE NEGATIVE Urine Nitrite NEGATIVE NEGATIVE Urine Bilirubin NEGATIVE NEGATIVE Urine Urobilinogen 1.0 < = 1.0 MG/DL Urine Leukocyte Esterase NEGATIVE NEGATIVE Urine RBC (Auto) 2+ H NEGATIVE Urine RBC RARE /HPF Urine WBC NONE /HPF Urine Squamous Epithelial Cells 2-5 /HPF Urine Crystals NONE /LPF Urine Bacteria FEW H /HPF Urine Casts NONE /LPF Urine Mucus NEGATIVE /LPF Urine Culture Indicated NO Urine Opiates Screen NEGATIVE NEGATIVE Urine Oxycodone Screen NEGATIVE NEGATIVE Urine Methadone Screen NEGATIVE NEGATIVE Urine Propoxyphene Screen NEGATIVE NEGATIVE Urine Barbiturates Screen NEGATIVE NEGATIVE Ur Tricyclic Antidepressants Screen NEGATIVE NEGATIVE Urine Phencyclidine Screen NEGATIVE NEGATIVE Urine Amphetamines Screen POSITIVE H NEGATIVE Urine Methamphetamines Screen NEGATIVE NEGATIVE Urine Benzodiazepines Screen NEGATIVE NEGATIVE Urine Cocaine Screen NEGATIVE NEGATIVE Urine Cannabinoids Screen POSITIVE H NEGATIVE (INDIA QUEVEDO MD) Vital Signs/I&O 06/24/22 06/24/22 11:13 13:29 Temp 36.6 Pulse 96 84 Resp 18 18 B/P (MAP) 111/73 (86) 105/66 Pulse Ox 99 98 O2 Delivery Room Air Room Air (INDIA QUEVEDO MD) Departure Communication (Admissions) Patient is afebrile, nontoxic, no distress. No peritoneal findings on abdominal exam. Lab work is reassuring and patient feels markedly improved after therapy in the emergency room. (ULICES MILLER) Impression Primary Impression: Nausea and vomiting Disposition: 01 HOME, SELF-CARE Condition: Stable Departure-Patient Inst. Decision time for Depature: 13:16 (ULICES MILLER) Referrals: ROBIN NOLASCO DO (PCP/Family) Primary Care Physician Patient Instructions: Nausea and Vomiting, Adult Scripts Ondansetron (Ondansetron Odt) 4 Mg Tab.rapdis 4 MG PO TID for Nausea, #14 TAB Prov: ULICES MILLER 06/24/22 ATTENDING PHYSICIAN NOTE: I was physically present as attending physician in the emergency department during the care of this patient, but I was not directly involved in the decision making or delivery of care for this patient. (INDIA QUEVEDO MD) ULICES MILLER Jun 24, 2022 11:35 INDIA QUEVEDO MD Jun 26, 2022 01:02
[2022-06-24 11:39] LABS: ALBUMIN 4.4 GM/DL (3.2-4.5)
[2022-06-24 11:41] LABS: TOTAL PROTEIN 7.4 GM/DL (6.4-8.2)
[2022-06-24 11:43] LABS: BILIRUBIN,TOTAL 0.6 MG/DL (0.1-1.0)
[2022-06-24 11:45] LABS: CREATININE SERUM 0.66 MG/DL (0.60-1.30)
[2022-06-24 11:56] LABS: BAND NEUTROPHILS 0 %; BASOPHILS % (MANUAL) 0 %; EOSINOPHILS % (MANUAL) 0 %; LYMPHOCYTES % (MANUAL) 6 %; MONOCYTES % (MANUAL) 4 %; NEUTROPHILS % (MANUAL) 90 %; RBC MORPH NORMAL
[2022-06-24 12:37] LABS: BILIRUBIN,URINE NEGATIVE (NEGATIVE); CLARITY,URINE CLEAR; COLOR,URINE YELLOW; GLUCOSE, URINE (UA) NEGATIVE (NEGATIVE); KETONES,URINE NEGATIVE (NEGATIVE); LEUKOCYTE ESTERASE ,URINE NEGATIVE (NEGATIVE); NITRITE,URINE NEGATIVE (NEGATIVE); PROTEIN,URINE NEGATIVE (NEGATIVE)
[2022-06-24 12:47] LABS: BACTERIA,URINE FEW /HPF; RBC,URINE RARE /HPF
[2022-06-24 12:48] LABS: AMPHETAMINE SCREEN, URINE POSITIVE (NEGATIVE); BARBITURATE SCREEN URINE NEGATIVE (NEGATIVE); BENZODIAZEPINES SCREEN URINE NEGATIVE (NEGATIVE); CANNABINOID SCREEN, URINE POSITIVE (NEGATIVE); COCAINE SCREEN URINE NEGATIVE (NEGATIVE); METHADONE STAT NEGATIVE (NEGATIVE); OPIATE SCREEN URINE NEGATIVE (NEGATIVE); OXYCODONE STAT NEGATIVE (NEGATIVE); PROPOXYPHENE STAT NEGATIVE (NEGATIVE); TRICYCLIC ANTIDEPRESSANTS SCRE NEGATIVE (NEGATIVE)
[2022-06-24] MEDS ORDERED: ONDA4TAB11 PO ×2 (13:17→13:38)
[2022-06-24 13:29] VITALS: BP 105/66
== END 2022-06-24 13:30 | disposition home or self-care (01) ==
LOC: EDUNIT# 11:03 → ER 11:06
DX: R11.2 Nausea with vomiting, unspecified (principal)
CPT/HCPCS: 36415; 80053; 80306; 81000; 83690; 84703; 85007; 85027

== ENCOUNTER → 2022-09-06 | Outpatient (CLI) | payer MEDICAID ==
[~2022-09-06] MED LIST changes: +ONDA4TAB11 PO
--- NOTE | 2022-09-06 14:25 | Diagnostic Imaging Report ---
PROCEDURE: Pelvic comp/transvaginal sonogram. TECHNIQUE: Complete transabdominal and transvaginal pelvic ultrasound was performed. In addition, limited pelvic Doppler was performed. INDICATION: Evaluate IUD. Uterus is anteverted measuring 8.0 x 4.6 x 5.3 cm. Endometrium is 5 mm in thickness. IUD appears to be well centered in the endometrial canal. No myometrial mass is detected. Right ovary measures 4.2 x 2.8 x 3.7 cm and the left ovary measures 2.6 x 1.0 x 2.0 cm. A right ovary does contain a septated cyst measuring 3.8 x 2.4 x 3.5 cm. There is blood flow to both ovaries. No free fluid is detected. IMPRESSION: 1. The IUD appears to be appropriately centered in the endometrial canal. 2. Septated right ovarian cyst 3.8 cm in size. Follow-up ultrasound in 6-8 weeks could be performed to confirm clearing. The study is otherwise unremarkable. Dictated by: Dictated on workstation # [id number]
== END ==
LOC: RAD 14:00
PROVIDERS: ATTEND Nurse Practitioner Family
DX: Z30.431 Encounter for routine checking of intrauterine contraceptive device (principal); N83.201 Unspecified ovarian cyst, right side
CPT/HCPCS: 76830; 76856